=== PATIENT | female | born 1980 | race Caucasian/White ===

== ENCOUNTER 2025-06-14 04:52 | Emergency (ER) | payer SELFPAY ==
[2025-06-14 04:59] VITALS: BP 124/83; PULSE 84; RESP 14; TEMP 36.8; O2SAT 93; BMI 31.7
--- NOTE | 2025-06-14 05:05 | ECG_ITS ---
[facility] Date: 2025-[facility]-14 Pat Name: Kiarra Alvarez Department: Room: Gender: Female Cloth Desizing Range Tender: : 1980 Requested By: Luis Felipe Graff Order Number: [id number] Beach MD: Colton Mckinley M.D. Measurements Intervals [place] Rate: 75 P: 63 AR: 147 QRS: 42 QRSD: 84 T: 67 QT: 388 QTc: 434 Interpretive Statements SINUS RHYTHM POSSIBLE LEFT ATRIAL ENLARGEMENT [-0.1mV P-WAVE IN V1/V2] No previous ECG available for comparison Electronically Signed On 06-14-2025 22:01:57 CDT by Colton Mckinley M.D. [email or web address]
[2025-06-14] MEDS: dextrose 5%-sod chloride 0.9% 1,000 ML 150 ML IV (05:20)
[2025-06-14 05:30] LABS: Hematocrit 45.2 % (36-47); Hemoglobin 14.60 g/dL (11.27-16.99); Mean Corpuscular HGB Conc 32.3 g/dL (30-55); Mean Corpuscular Hemoglobin 34.8 pg (27-33); Mean Corpuscular Volume 107.6 fl (85-98); Nucleated Red Blood Cells % 0 %; Platelet Count 227 10^3/cmm (157-399); Red Blood Count 4.20 10^6/uL (3.85-5.65); White Blood Count 13.61 10^3/uL (3.29-11.43)
--- NOTE | 2025-06-14 05:30 | ED_ITS ---
Documented by User: Luis Felipe Diaz, DO 06/14/25 18:42 HPI - Recheck/Abnormal Lab/Rx 2 General: Chief Complaint: Recheck/Abnormal Lab/Rx Stated Complaint: HYPOGLYCEMIA Time Seen by Provider: 06/14/25 05:04 History of Present Illness: Patient is a 44-year-old female with insulin-dependent diabetes mellitus who presents today with a history of recent hyperglycemia and vomiting. The patient reports having a blood glucose level of approximately 700 mg/dL last week, which she managed at home without hospitalization. She states she treated herself with 'lots of water' but did not administer additional insulin to correct the hyperglycemia. She reports recent episodes of vomiting but denies diarrhea. The patient also mentions having a low blood sugar episode. She denies recent illness, fever, or cough otherwise. The patient reports current urinary urgency. Of note, the patient states she lives in [place] and appears somewhat disoriented during the interview. She is falls asleep during questioning, and in the middle of her answers. Related Data Allergies Allergy/AdvReac Type Severity Reaction Status Date / Time erythromycin base Allergy ADR-Vomitin Verified 06/14/25 05:01 g Sulfa (Sulfonamide Allergy ALGY-Hives Verified 06/14/25 05:01 Antibiotics) Physical Exam 2 Const: COMMON NORMALS: no acute distress EXAM LIMITATIONS: altered mental status GENERAL APPEARANCE: lethargic; not in distress, not ill appearing and not frail appearing O RIENTATION/CONSCIOUSNESS: Yes lethargic and Yes Other orientation findings (Somnolent) HENMT: COMMON NORMALS: normocephalic, atraumatic and Normal external nose present HEAD & SCALP: normocephalic and atraumatic FACE & SINUS: normal facial exam and face symmetric NOSE: Normal external nose present Eye: COMMON NORMALS: Equal, round and reactive pupils present, EOMs intact bilaterally and conjunctivae normal CONJUNCTIVA: Yes conjunctivae normal P UPIL: Yes Equal, round and reactive pupils present Neck/C-Spine: GENERAL: Yes trachea midline CERVICAL SPINE: No Cervical spine tenderness Chest: CHEST: Yes Symmetrical chest wall rise Resp: COMMON NORMALS: normal respiratory effort, No use of accessory muscles and clear to auscultation bilaterally AUSCULTATION: clear to auscultation bilaterally Cardio: COMMON NORMALS: regular rate and regular rhythm RATE: regular rate RHYTHM: regular rhythm GI: COMMON NORMALS: Soft to palpation PALPATION: Yes Soft to palpation Neuro: ZAC COMA SCALE: document GCS findings [place] coma scale eye opening: To sound Zac coma scale verbal response: Confused Zac coma scale motor response: Obey commands Zac coma scale total score: 13 S ENSORIUM/ORIENTATION: Yes lethargic Course 2 Vital Signs: Vital signs: Vital Signs Temperature 98.2 F 06/14/25 04:59 Pulse Rate 84 06/14/25 04:59 Respiratory Rate 14 06/14/25 04:59 Blood Pressure 124/83 06/14/25 04:59 Pulse Oximetry 93 06/14/25 04:59 Oxygen Delivery Me thod Room Air 06/14/25 04:59 MDM - Recheck/Abnormal Lab/Rx Medical Decision Making Vitals remained stable. Patient's saturations are 91-93 on room air. She still a bit somnolent. Serum blood sugar is 100. White blood cell count is 13.6. Other laboratory is not remarkable. Urinalysis and urine drug screen are pending. Given her somnolence, and the fact that she has not eaten anything, we will check out patient to oncoming physician. She is getting D5 normal saline currently. Insulin pump was removed. Lab Data 06/14/25 05:25 06/14/25 05:25 Laboratory Results WBC 13.61 10^3/uL (3.29-11.43) H 06/14/25 05:25 RBC 4.20 10^6/uL (3.85-5.65) 06/14/25 05:25 Hgb 14.60 g/dL (11.27-16.99) 06/14/25 05:25 Hct 45.2 % (36-47) 06/14/25 05:25 MCV 107.6 fl (85-98) H 06/14/25 05:25 MCH 34.8 pg (27-33) H 06/14/25 05:25 MCHC 32.3 g/dL (30-55) 06/14/25 05:25 RDW 13.4 % (12.1-15.1) 06/14/25 05:25 Plt Count 227 10^3/cmm (157-399) 06/14/25 05:25 MPV 10.4 fL (7.4-10.4) 06/14/25 05:25 Neut % (Auto) 82.6 % 06/14/25 05:25 Lymph % (Auto) 8.7 % 06/14/25 05:25 [place] % (Auto) 7.5 % 06/14/25 05:25 Eos % (Auto) 0.4 % 06/14/25 05:25 Baso % (Auto) 0.4 % 06/14/25 05:25 Neut # (Auto) 11.24 10^3/uL (1.8-7.7) H 06/14/25 05:25 Lymph # (Auto) 1.2 10^3/uL (0.8-4.8) 06/14/25 05:25 [place] # (Auto) 1.0 10^3/uL (0.2-0.9) H 06/14/25 05:25 Eos # (Auto) 0.1 10^3/uL (0.0-0.8) 06/14/25 05:25 Baso # (Auto) 0.1 10^3/uL (0.0-0.1) 06/14/25 05:25 Nucleated RBC % (auto) 0 % 06/14/25 05:25 Nucleated RBCs # 0.0 /100WBC 06/14/25 05:25 Sodium 141 mmol/L (136-145) 06/14/25 05:25 Potassium 4.2 mmol/L (3.5-5.1) 06/14/25 05:25 Chloride 104 mmol/L (98-107) 06/14/25 05:25 Carbon Dioxide 25 mmol/L (22-29) 06/14/25 05:25 Anion Gap 16.2 (5-19) 06/14/25 05:25 BUN 14 mg/dL (6-20) 06/14/25 05:25 Creatinine 0.8 mg/dL (0.5-0.9) 06/14/25 05:25 GFR Calculation 77.9 mL/min (90-130) L 06/14/25 05:25 Glucose 100 mg/dL (65-115) 06/14/25 05:25 POC Glucose 209 mg/dL (70-110) H 06/14/25 06:42 Calculated Osmolality 293 mOsm/kg (285-295) 06/14/25 05:25 Lactic Acid 1.1 mmol/L (0.5-2.2) 06/14/25 05:25 Calcium 8.7 mg/dL (8.5-10.5) 06/14/25 05:25 Magnesium 1.7 mg/dL (1.7-2.3) 06/14/25 05:25 Total Bilirubin 0.2 mg/dL (0.15-1.2) 06/14/25 05:25 AST 19 U/L (0-32) 06/14/25 05:25 ALT 17 U/L (0-33) 06/14/25 05:25 Alkaline Phosphatase 143 U/L (35-105) H 06/14/25 05:25 Total Protein 5.9 g/dL (6.6-8.7) L 06/14/25 05:25 Albumin 3.1 g/dL (3.5-5.2) L 06/14/25 05:25 Globulin 2.8 g/dL (1.3-4.6) 06/14/25 05:25 HCG, Qual Negative (Negative) 06/14/25 05:25 Ethyl Alcohol < 10 mg/dL (0-10) 06/14/25 05:25 Discharge Plan Discharge Patient Disposition: Home Clinical Impression: Hypoglycemia Condition: Stable Discharge Orders: Discharge ED (Routine); Ordered 06/14/25 Ordered By: Angelia Romero Discharge Diet: Advance as tolerated Discharge Activity: Resume usual activity Patient Instructions: Hypoglycemia in a Person with Diabetes (ED) Print Language: Romanian Coding Level of Care Code ED Global Account Manager for Chg Fwd Documented by User: Angelia Romero MD 06/14/25 07:35 HPI - Recheck/Abnormal Lab/Rx 2 General: Chief Complaint: Recheck/Abnormal Lab/Rx Stated Complaint: HYPOGLYCEMIA Time Seen by Provider: 06/14/25 05:04 Related Data Allergies Allergy/AdvReac Type Severity Reaction Status Date / Time erythromycin base Allergy ADR-Vomitin Verified 06/14/25 05:01 g Sulfa (Sulfonamide Allergy ALGY-Hives Verified 06/14/25 05:01 Antibiotics) Physical Exam 2 Neuro: ZAC COMA SCALE: document GCS findings Zac coma scale total score: 13 Course 2 Vital Signs: Vital signs: Vital Signs Temperature 98.2 F 06/14/25 04:59 Pulse Rate 84 06/14/25 04:59 Respiratory Rate 14 06/14/25 04:59 Blood Pressure 124/83 06/14/25 04:59 Pulse Oximetry 93 06/14/25 04:59 Oxygen Delivery Me thod Room Air 06/14/25 04:59 MDM - Recheck/Abnormal Lab/Rx Medical Decision Making Vitals remained stable. Patient's saturations are 91-93 on room air. She still a bit somnolent. Serum blood sugar is 100. White blood cell count is 13.6. Other laboratory is not remarkable. Urinalysis and urine drug screen are pending. Given her somnolence, and the fact that she has not eaten anything, we will check out patient to oncoming physician. She is getting D5 normal saline currently. Insulin pump was removed. Patient is now awake and alert her glucose is stabilized AMS likely caused by her hypoglycemia she is stable for discharge follow-up PCP return if worsening Lab Data 06/14/25 05:25 06/14/25 05:25 Laboratory Results WBC 13.61 10^3/uL (3.29-11.43) H 06/14/25 05:25 RBC 4.20 10^6/uL (3.85-5.65) 06/14/25 05:25 Hgb 14.60 g/dL (11.27-16.99) 06/14/25 05:25 Hct 45.2 % (36-47) 06/14/25 05:25 MCV 107.6 fl (85-98) H 06/14/25 05:25 MCH 34.8 pg (27-33) H 06/14/25 05:25 MCHC 32.3 g/dL (30-55) 06/14/25 05:25 RDW 13.4 % (12.1-15.1) 06/14/25 05:25 Plt Count 227 10^3/cmm (157-399) 06/14/25 05:25 MPV 10.4 fL (7.4-10.4) 06/14/25 05:25 Neut % (Auto) 82.6 % 06/14/25 05:25 Lymph % (Auto) 8.7 % 06/14/25 05:25 [place] % (Auto) 7.5 % 06/14/25 05:25 Eos % (Auto) 0.4 % 06/14/25 05:25 Baso % (Auto) 0.4 % 06/14/25 05:25 Neut # (Auto) 11.24 10^3/uL (1.8-7.7) H 06/14/25 05:25 Lymph # (Auto) 1.2 10^3/uL (0.8-4.8) 06/14/25 05:25 [place] # (Auto) 1.0 10^3/uL (0.2-0.9) H 06/14/25 05:25 Eos # (Auto) 0.1 10^3/uL (0.0-0.8) 06/14/25 05:25 Baso # (Auto) 0.1 10^3/uL (0.0-0.1) 06/14/25 05:25 Nucleated RBC % (auto) 0 % 06/14/25 05:25 Nucleated RBCs # 0.0 /100WBC 06/14/25 05:25 Sodium 141 mmol/L (136-145) 06/14/25 05:25 Potassium 4.2 mmol/L (3.5-5.1) 06/14/25 05:25 Chloride 104 mmol/L (98-107) 06/14/25 05:25 Carbon Dioxide 25 mmol/L (22-29) 06/14/25 05:25 Anion Gap 16.2 (5-19) 06/14/25 05:25 BUN 14 mg/dL (6-20) 06/14/25 05:25 Creatinine 0.8 mg/dL (0.5-0.9) 06/14/25 05:25 GFR Calculation 77.9 mL/min (90-130) L 06/14/25 05:25 Glucose 100 mg/dL (65-115) 06/14/25 05:25 POC Glucose 209 mg/dL (70-110) H 06/14/25 06:42 Calculated Osmolality 293 mOsm/kg (285-295) 06/14/25 05:25 Lactic Acid 1.1 mmol/L (0.5-2.2) 06/14/25 05:25 Calcium 8.7 mg/dL (8.5-10.5) 06/14/25 05:25 Magnesium 1.7 mg/dL (1.7-2.3) 06/14/25 05:25 Total Bilirubin 0.2 mg/dL (0.15-1.2) 06/14/25 05:25 AST 19 U/L (0-32) 06/14/25 05:25 ALT 17 U/L (0-33) 06/14/25 05:25 Alkaline Phosphatase 143 U/L (35-105) H 06/14/25 05:25 Total Protein 5.9 g/dL (6.6-8.7) L 06/14/25 05:25 Albumin 3.1 g/dL (3.5-5.2) L 06/14/25 05:25 Globulin 2.8 g/dL (1.3-4.6) 06/14/25 05:25 HCG, Qual Negative (Negative) 06/14/25 05:25 Ethyl Alcohol < 10 mg/dL (0-10) 06/14/25 05:25 All radiology interpretation(s) finalized by discharge Discharge Plan Discharge Patient Disposition: Home Clinical Impression: Hypoglycemia Condition: Stable Discharge Orders: Discharge ED (Routine); Ordered 06/14/25 Ordered By: Angelia Romero Discharge Diet: Advance as tolerated Discharge Activity: Resume usual activity Patient Instructions: Hypoglycemia in a Person with Diabetes (ED) Print Language: Romanian Coding Level of Care Code ED Global Account Manager for Charles Lazaro
[2025-06-14 05:51] LABS: HCG, Serum Qual Negative (Negative)
[2025-06-14 05:54] LABS: Lactic Sepsis W/Reflex 1.1 mmol/L (0.5-2.2)
[2025-06-14 05:55] LABS: Alanine Aminotransferase 17 U/L (0-33); Albumin Level 3.1 g/dL (3.5-5.2); Alkaline Phosphatase 143 U/L (35-105); Anion Gap 16.2 (5-19); Aspartate Amino Transferase 19 U/L (0-32); Blood Urea Nitrogen 14 mg/dL (6-20); Calcium 8.7 mg/dL (8.5-10.5); Carbon Dioxide 25 mmol/L (22-29); Chloride 104 mmol/L (98-107); Creatinine Clr Calc Pharmacy 94.0468; Globulin 2.8 g/dL (1.3-4.6); Glucose 100 mg/dL (65-115); Magnesium 1.7 mg/dL (1.7-2.3); Osmolality Calculated 293 mOsm/kg (285-295); Potassium 4.2 mmol/L (3.5-5.1); Sodium 141 mmol/L (136-145); Total Protein 5.9 g/dL (6.6-8.7)
[2025-06-14 05:56] LABS: Alcohol Level < 10 mg/dL (0-10)
== END 2025-06-14 07:27 | disposition home or self-care (01) ==
PROVIDERS: Emergency Medicine; Emergency Provider Emergency Medicine
DX: E11.649 Type 2 diabetes mellitus with hypoglycemia without coma (principal); Z79.4 Long term (current) use of insulin
CPT/HCPCS: 36416; 80053; 80307; 82962; 83605; 83735; 84703; 85025; 93005; 96361; 96374; 99284; J2310; J7042